=== PATIENT | female | born 2000 | race Hispanic/Latino ===

== ENCOUNTER 2020-01-15 16:33 | Outpatient (CLI) | payer OTHER ==
--- NOTE | 2020-01-15 16:55 | RAD ---
Chest 2 views HISTORY: Positive TB test. FINDINGS: Cardiac silhouette and pulmonary vasculature are unremarkable. Mediastinum is midline. No confluent airspace consolidation, pneumothorax, or pleural fluid. IMPRESSION : No abnormalities are demonstrated.
== END 2020-01-15 16:34 | disposition home or self-care (01) ==
LOC: RAD 16:33
PROVIDERS: ATTEND Family Medicine
DX: R76.11 Nonspecific reaction to tuberculin skin test without active tuberculosis (principal)
CPT/HCPCS: 71046